=== PATIENT | female | born 2005 | race Caucasian/White ===

== ENCOUNTER 2023-01-15 15:45 | Outpatient (RCR) | payer OTHER, SELFPAY | END 2023-01-16 09:02 | disposition home or self-care (01) | PROVIDERS: PCP Family Medicine; Visit Provider Family Medicine | DX: M47.816 Spondylosis without myelopathy or radiculopathy, lumbar region (principal); Z51.89 Encounter for other specified aftercare | CPT/HCPCS: 97110; 97162 ==

== ENCOUNTER 2023-09-04 15:15 | Outpatient (RCR) | payer OTHER, SELFPAY | END 2023-09-05 15:57 | disposition home or self-care (01) | PROVIDERS: PCP Family Medicine; Visit Provider Family Medicine Sports Medicine | DX: M51.36 Other intervertebral disc degeneration, lumbar region (principal); Z51.89 Encounter for other specified aftercare | CPT/HCPCS: 97110; 97161 ==